=== PATIENT | female | born 2000 | race Two or more races ===

== ENCOUNTER 2024-04-10 21:46 | Inpatient (IN) | payer OTHER ==
[~2024-04-10] VITALS: Ht 170.2 cm; Wt 70.8 kg
[2024-04-10 22:40] LABS: BG CARBOXYHEMOGLOBIN 0.3 % (0.5-1.5); BG DEOXYHEMOGLOBIN 0.5 % (0.0-5.0); BG FRACTION INSPIRED OXYGEN 100; BG METHEMOGLOBIN 24.8 % (0.0-1.5); BG OXYGEN SATURATION 99.3 % (92.0-98.5); BG OXYHEMOGLOBIN 74.4 % (94.0-97.0); BG PH 7.492 (7.350-7.450); BG PO2 204.7 mmHg (75.0-100.0); BG TOTAL HEMOGLOBIN 14.3 g/dL (12.0-18.0); BG VENT MODE MASK - NRB
[2024-04-10] MEDS: METHYLENE BLUE 1% VIAL 1ML IV ONE (23:00)
[2024-04-10] MEDS: SODIUM CHLORIDE 0.9% 1,000 ML IV ONE (23:23)
[2024-04-10 23:37] LABS: BASOPHILS % 0.2 % (0.0-2.0); EOSINOPHILS % 0.3 % (0.0-5.0); HEMATOCRIT. 38.7 % (36.0-48.0); HEMOGLOBIN. 13.1 g/dL (12.0-16.0); LYMPHOCYTES % 10.7 % (20.0-50.0); MEAN CORPUSCULAR HEMOGLOBIN 30.8 pg (28.0-32.0); MEAN CORPUSCULAR HGB CONC 33.8 g/dL (31.0-37.0); MEAN CORPUSCULAR VOLUME 91.4 fL (81.0-99.0); MEAN PLATELET VOLUME 8.1 fl (7.4-10.4); MONOCYTES % 4.1 % (2.0-8.0); NEUTROPHILS % 84.7 % (40.0-76.0); PLATELET 281 x1000/uL (130-400); RED BLOOD CELL COUNT 4.24 mill/uL (4.2-5.4); RED CELL DISTRIBUTION WIDTH 13.3 % (11.6-14.6); WHITE BLOOD COUNT 8.3 x1000/uL (4.5-11.0)
[2024-04-10 23:41] LABS: CLARITY URINE CLEAR (CLEAR); COLOR URINE YELLOW (YELLOW); GLUCOSE URINE NEGATIVE (NEGATIVE); KETONES URINE NEGATIVE (NEGATIVE); LEUKOCYTE ESTERASE URINE NEGATIVE (NEGATIVE); NITRITE URINE NEGATIVE (NEGATIVE); OCCULT BLOOD URINE NEGATIVE (NEGATIVE); PH URINE 5.5 (4.5-8.0); PROTEIN URINE NEGATIVE (NEGATIVE); SPECIFIC GRAVITY URINE 1.008 (1.005-1.030); UROBILINOGEN URINE 0.2 E.U./dL (0.2-1.0)
[2024-04-10 23:45] LABS: CARBON DIOXIDE 24 mEq/L (21-32); CHLORIDE 106 mEq/L (98-107); POTASSIUM 3.9 mEq/L (3.5-5.1); SODIUM 141 mEq/L (136-145)
[2024-04-10 23:46] LABS: CALCIUM 9.5 mg/dL (8.7-10.4)
[2024-04-10 23:47] LABS: D-DIMER 0.4 mg/L FEU (<0.50); INR 0.9; PROTHROMBIN TIME 10.6 sec (9.6-11.0)
[2024-04-10 23:50] LABS: CREATININE 0.5 mg/dL (0.6-1.0)
[2024-04-10 23:51] LABS: ETHANOL BLOOD 92 mg/dL (<10); GLUCOSE 89 mg/dL (70-105); HCG SCREEN NEGATIVE
[2024-04-10 23:52] LABS: ALANINE AMINOTRANSFERASE 12 IU/L (10-49); ALBUMIN 4.6 g/dL (3.2-4.8); ASPARTATE AMINOTRANSFERASE 17 IU/L (<34)
[2024-04-10 23:53] LABS: BILIRUBIN DIRECT 0.1 mg/dL (<=3.0); BILIRUBIN TOTAL 0.5 mg/dL (0.1-1.0); PROTEIN TOTAL 7.5 g/dL (6.0-8.3)
[2024-04-10 23:56] LABS: TROPONIN I HIGH SENSITIVITY < 4 ng/L (3.0-34); UREA NITROGEN BLOOD < 5 mg/dL (9-23)
[2024-04-11] MEDS: WATER IV NR (00:03)
[2024-04-11] MEDS: METHYLENE BLUE IV NR (00:03)
[2024-04-11] MEDS: DEXTROSE 5% IV NR (00:03)
[2024-04-11 04:00] VITALS: BP 100/59; PULSE 70; RESP 16; TEMP 98.1
[2024-04-11] MEDS ORDERED: ACETAMINOPHEN 325MG TABLET PO PRN (04:45)
[2024-04-11] MEDS: PANTOPRAZOLE 40MG DR TABLET PO SCH (06:49)
[2024-04-11] MEDS: DEXT 5%/0.9% NACL 1,000 ML IV SCH (06:50)
[2024-04-11 08:00] VITALS: BP 110/53; PULSE 65; RESP 16; TEMP 97.4
[2024-04-11 10:55] LABS: BG BASE EXCESS -0.3 mmol/L (-2.0-2.0); BG CARBOXYHEMOGLOBIN 0.7 % (0.5-1.5); BG DEOXYHEMOGLOBIN 1.4 % (0.0-5.0); BG FRACTION INSPIRED OXYGEN 21; BG HCO3 ACT 23.2 mmol/L (22.0-26.0); BG METHEMOGLOBIN 0.3 % (0.0-1.5); BG OXYGEN SATURATION 98.6 % (92.0-98.5); BG OXYHEMOGLOBIN 97.6 % (94.0-97.0); BG PCO2 34.4 mmHg (35.0-45.0); BG PH 7.447 (7.350-7.450); BG PO2 117.2 mmHg (75.0-100.0); BG SAMPLE SITE RIGHT RADIAL; BG VENT MODE ROOM AIR
[2024-04-11 11:04] LABS: BASOPHILS % 0.3 % (0.0-2.0); EOSINOPHILS % 1.4 % (0.0-5.0); HEMATOCRIT. 36.4 % (36.0-48.0); HEMOGLOBIN. 12.1 g/dL (12.0-16.0); LYMPHOCYTES % 24.5 % (20.0-50.0); MEAN CORPUSCULAR HEMOGLOBIN 30.6 pg (28.0-32.0); MEAN CORPUSCULAR HGB CONC 33.1 g/dL (31.0-37.0); MEAN CORPUSCULAR VOLUME 92.4 fL (81.0-99.0); MONOCYTES % 8.6 % (2.0-8.0); NEUTROPHILS % 65.2 % (40.0-76.0); PLATELET 230 x1000/uL (130-400); RED BLOOD CELL COUNT 3.94 mill/uL (4.2-5.4); RED CELL DISTRIBUTION WIDTH 13.5 % (11.6-14.6)
[2024-04-11 11:05] LABS: CHLORIDE 109 mEq/L (98-107); POTASSIUM 3.7 mEq/L (3.5-5.1); SODIUM 141 mEq/L (136-145)
[2024-04-11 11:06] LABS: CALCIUM 8.7 mg/dL (8.7-10.4); CARBON DIOXIDE 26 mEq/L (21-32)
[2024-04-11 11:11] LABS: CREATININE 0.6 mg/dL (0.6-1.0); GLUCOSE 98 mg/dL (70-105); UREA NITROGEN BLOOD 6 mg/dL (9-23)
[2024-04-11 11:13] LABS: ALANINE AMINOTRANSFERASE 11 IU/L (10-49); ALBUMIN 3.9 g/dL (3.2-4.8); ASPARTATE AMINOTRANSFERASE 15 IU/L (<34); BILIRUBIN TOTAL 1.1 mg/dL (0.1-1.0); PROTEIN TOTAL 6.3 g/dL (6.0-8.3)
[2024-04-11 11:34] LABS: HEPATITIS B SURFACE ANTIGEN NEGATIVE (Negative)
[2024-04-11 11:56] LABS: HEPATITIS C AB NON REACTIVE (Neg) (Negative)
[2024-04-11 12:00] VITALS: BP 102/54; PULSE 62; RESP 20; TEMP 97.7
[2024-04-11 16:00] VITALS: BP 112/61; PULSE 50; RESP 16; TEMP 97.4
[2024-04-11 16:31] VITALS: BP 112/61; PULSE 70; TEMP 97.4; O2SAT 98
== END 2024-04-11 18:34 | disposition home or self-care (01) | DRG 812 ==
LOC: ER 21:56 → EDBEDREQ 22:41 → 5WST 04-11 01:29 → EDBEDREQTM 04-11 01:40 → EDBEDREQ 04-11 01:40 → 7EST 04-11 04:00
PROVIDERS: ADMIT Internal Medicine; ATTEND Internal Medicine
DX: D74.8 Other methemoglobinemias (principal); F10.129 Alcohol abuse with intoxication, unspecified; F41.0 Panic disorder [episodic paroxysmal anxiety]; R09.02 Hypoxemia; Y90.9 Presence of alcohol in blood, level not specified; F19.129 Other psychoactive substance abuse with intoxication, unspecified
CPT/HCPCS: 36415; 36600; 71045; 80048; 80053; 80076; 80320; 81003; 82375; 82805; 83880; 84484; 84703; 85025; 85379; 86705; 87340; 93005; 99291; J7030; J7042; J7060; Q9968; G0480